=== PATIENT | male | born 1990 | race Caucasian/White ===

== ENCOUNTER 2023-11-05 14:27 | Outpatient (CLI) | payer OTHER, SELFPAY ==
--- NOTE | ~2023-11-05 | XR_ITS ---
Right Shoulder Technique: AP and scapular Y views were obtained. Clinical History: Pain Findings: No fracture or dislocation is seen. Osseous alignment is anatomic. The glenohumeral and acr omioclavicular joint spaces are preserved. Soft tissues are unremarkable. Impression: Unremarkable right shoulder radiographs. Reviewed, dictated and finalized at [facility]. Impression: Unremarkable right shoulder radiographs.
== END 2023-11-05 14:28 ==
PROVIDERS: PCP Chiropractor; Visit Provider Chiropractor
DX: M25.511 Pain in right shoulder (principal)
CPT/HCPCS: 73030

== ENCOUNTER 2023-11-12 07:46 | Outpatient (CLI) | payer OTHER, SELFPAY ==
--- NOTE | ~2023-11-12 | MR_ITS ---
EXAMINATION: MR shoulder RT wo con DATE: 11/12/2023 08:16 INDICATION: Right rotator cuff tear TECHNIQUE: Magnetic resonance imaging (MRI) of the right shoulder was performed without intravenous c ontrast. Sequences included axial PD-weighted FS FSE, coronal oblique PD-weighted FS FSE, coronal obl ique T2-weighted FS FSE, sagittal PD-weighted FS FSE, and sagittal T1-weighted SE. COMPARISON: None. FINDINGS: Coracoacromial arch: The acromion undersurface is curved in morphology (type II). The coracoacromial ligament is normal. M ild acromioclavicular osteoarthritis. Rotator cuff: The supraspinatus, infraspinatus and teres minor tendons are normal. The subscapularis tendon is norm al. Normal rotator cuff muscle bulk and signal. Biceps tendon, glenoid labrum and glenohumeral cartilage: Long head of the biceps tendon is normal. There is a tear at the tear at the 6:00 position of the inf erior labrum with 1.6 x 1.3 x 0.9 cm multilobulated para labral cyst extending posteriorly along the inferior margin of the glenoid and separate 1.2 x 0.7 x 0.3 cm paralabral cyst extending anteriorly a long the anteroinferior rim of the glenoid. Glenohumeral cartilage is normal. Fluid: Physiologic amount of fluid in the glenohumeral joint and biceps tendon sheath. No loose osteochondr al bodies. No abnormal fluid signal in the subacromial/subdeltoid bursa to suggest bursitis. Bones: Asymmetric mild subarticular cystlike changes and surrounding edema-like signal change at the clavicu lar side of the acromioclavicular joint which can be seen in the setting of distal clavicular osteoly sis. Otherwise normal marrow signal with no fracture or pathologic marrow replacing process. IMPRESSION: 1. Small tear at the 6:00 position of the inferior glenoid labrum with a couple associated para petrona l cyst. 2. 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 Reviewed, dictated and finalized at [facility]. IMPRESSION: 1. Small tear at the 6:00 position of the inferior glenoid labrum with a couple associated para labral cyst. 2. 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
== END 2023-11-12 07:47 ==
LOC: MICIMG 07:47
PROVIDERS: PCP Chiropractor; Visit Provider Chiropractor
DX: S43.431A Superior glenoid labrum lesion of right shoulder, initial encounter (principal); X58.XXXA Exposure to other specified factors, initial encounter
CPT/HCPCS: 73221